=== PATIENT | female | born 1990 | race Caucasian/White ===

== ENCOUNTER → 2019-05-28 | Outpatient (REF) | payer OTHER ==
[2019-05-28 22:41] LABS: CHLAMYDIA DNA AMPLIFICATION NEGATIVE (NEGATIVE); GC DNA AMPLIFICATION NEGATIVE (NEGATIVE)
== END ==
LOC: M LAB REF 17:28
PROVIDERS: ATTEND Obstetrics & Gynecology
DX: Z11.3 Encounter for screening for infections with a predominantly sexual mode of transmission (principal)

== ENCOUNTER → 2019-07-29 | Outpatient (CLI) | payer OTHER ==
--- NOTE | 2019-07-30 08:58 | REP ---
PELVIC SONOGRAPHY: HISTORY: Pelvic pain with palpable vaginal varix. FINDINGS: Uterine dimensions are normal at 7.4 x 4.3 x 5.7 cm. Endometrial echo is 1.1 cm thick and centrally placed. No focal uterine mass is seen. No free fluid is noted. Right ovary is normal measuring 3.0 x 1.5 x 1.9 cm. Doppler flow in the right ovary is normal with resistive index 0.70. Left ovarian dimensions are 3.3 x 2.1 x 2.0 cm. There is a 1.9 x 1.7 x 1.5 cm left ovarian cyst consistent with a follicle cyst. Translabial scanning is performed. The left labia minora showed no vascular abnormalities. IMPRESSION: No significant abnormality. Electronically Signed by Sandro Hurley MD 07/30/2019 09:12 A
== END ==
LOC: M RAD 17:31
PROVIDERS: ATTEND Radiology Diagnostic Radiology
DX: R10.2 Pelvic and perineal pain (principal)